=== PATIENT | female | born 1965 | race Caucasian/White ===

== ENCOUNTER 2016-12-09 15:17 | Emergency (ER) | payer OTHER ==
[~2016-12-09] VITALS: Ht 160 cm; Wt 59.0 kg
[2016-12-09 15:36] VITALS: BP_SYST 118
--- NOTE | 2016-12-09 15:36 | NUR ---
Patient to ER bed 1 to gown for evaluation. Side rails up. Report given to GEORGE WILEY.
--- NOTE | 2016-12-09 15:47 | NUR ---
Patient in stable condition, alert and oriented x4. Patient states that for 2 weeks she has had intermittent diffuse chest/epi gastric tightness along with shoulder pain and shortness of breath. States pain occurred only while at home at rest Denies any dizziness/passing out/injury. States following medication in ambulance she is relieved of all symptoms. No other complaints/injuries per patient or noted. Addendum: 12/09/16 at 1924 by TOMA left shoulder pain
[2016-12-09] MEDS ORDERED: NITROGLYCERIN 0.4 MG TAB.SUBL SL ONE ×2 (16:45→19:00)
[2016-12-09] MEDS ORDERED: NITROGLYCERIN 1 INCH (GM) OINT. TD ONE (16:45)
--- NOTE | 2016-12-09 16:45 | NUR ---
Patient states that she is feeling upper abdomen tightness. MD aware. Medication to be administered now.
--- NOTE | 2016-12-09 16:57 | NUR ---
Patient states does not have chest/abdomen pain or tightness at this time. aware. Will continue to monitor. Addendum: 12/09/16 at 1913 by TOMA aware only 1 tab SL nitro given with relief
[2016-12-09 17:05] LABS: BASOPHILS % (AUTO) 0.3 % (0.0-2.0); EOSINOPHILS % (AUTO) 0.1 % (0.0-4.0); HEMATOCRIT 39.6 % (36-48); HEMOGLOBIN 13.1 g/dL (12.0-16.0); LYMPHOCYTES # (AUTO) 0.7 K/uL (1.0-5.5); LYMPHOCYTES % (AUTO) 13.6 % (20.5-51.5); MEAN CORPUSCULAR HEMOGLOBIN 29 pg (27-31); MEAN CORPUSCULAR HGB CONC 33 % (32-36); MEAN CORPUSCULAR VOLUME 87 fL (79.0-98.0); MONOCYTES # (AUTO) 0.1 K/uL (0.0-1.0); MONOCYTES % (AUTO) 2.8 % (1.7-9.3); NEUTROPHILS # (AUTO) 4.4 K/uL (1.8-7.7); NEUTROPHILS % (AUTO) 83.2 % (40.0-70.0); PLATELET COUNT (AUTO) 242 K/uL (130-430); RED BLOOD CELL COUNT(AUTO) 4.58 MIL/uL (4.2-6.2); WHITE BLOOD COUNT (AUTO) 5.2 K/uL (4.8-10.8)
[2016-12-09 17:29] LABS: CALCIUM 8.8 mg/dL (8.4-11.0); CREATININE 0.76 mg/dL (0.55-1.30); POTASSIUM 4.1 mmol/L (3.5-5.1)
--- NOTE | 2016-12-09 17:30 | NUR ---
Belen mccann in ED - 12/09/16 at 1900 by TOMA Patient in stable condition, states no longer feels pain but still has slight tightness in upper abdomen.
--- NOTE | 2016-12-09 17:31 | NUR ---
Patient states does not have chest/abdomen pain or tightness at this time.
[2016-12-09 17:34] LABS: ALBUMIN 3.6 g/dL (3.4-4.8); TOTAL BILIRUBIN 0.3 mg/dL (0.0-1.0); TOTAL PROTEIN, SERUM 7.5 g/dL (6.4-8.3)
--- NOTE | 2016-12-09 18:58 | NUR ---
Cardiac tray ordered per MD verbal order.
--- NOTE | 2016-12-09 19:00 | NUR ---
Patient states is beginning to have upper abdomen tightness again. Per MD, second dose of Nitro tab given. See medical laboratory assistant intevention. Addendum: 12/09/16 at 1927 by TOMA No shortness of breath per patient or noted.
--- NOTE | 2016-12-09 19:05 | NUR ---
Patient states that medication helped, feels that upper abdomen tightness is gone but still feels a slight discomfort. Patient does not want another nitro tab at this time. aware. Endorsed to night RN.
[2016-12-09 20:48] VITALS: BP_SYST 120
--- NOTE | 2016-12-09 20:48 | NUR ---
Patient to be transferred to [facility]. Is being transferred due to higher level of care. Receiving facility has accepting physician and available space. ER physician has signed transfer form. Patient or responsible alliance party has agreed to transfer and signed form. Patient belongings inventoried and will be sent with patient. Copy of nursing notes, lab reports, EKG, Physicians Orders and X-rays to be sent with patient. Report called to GEORGE BELLA at receiving facility. Receiving physician is DR. SHIN. [facility] ambulance service has been called for transfer. ETA is 30 MIN.
== END 2016-12-09 20:48 | disposition short-term general hospital (02) ==
LOC: SED 15:17
DX: I20.0 Unstable angina (principal); R11.10 Vomiting, unspecified; R61 Generalized hyperhidrosis
CPT/HCPCS: 36415; 71010; 80053; 83880; 84484; 85025; 85379; 93005; 99285